=== PATIENT | female | born 1950 | race Caucasian/White ===

== ENCOUNTER 2018-01-12 08:34 | Outpatient (CLI) | payer MEDICARE, BC, OTHER | END 2018-01-12 08:35 | disposition home or self-care (01) | LOC: BICMRI 08:34 | PROVIDERS: ATTEND Nurse Practitioner Family | DX: M47.26 Other spondylosis with radiculopathy, lumbar region (principal) | CPT/HCPCS: 72020; 72148 ==

== ENCOUNTER 2018-07-25 11:58 | Outpatient (CLI) | payer MEDICARE, BC, OTHER | END 2018-07-25 11:59 | disposition home or self-care (01) | LOC: BICMAMMO 11:58 | PROVIDERS: ATTEND Internal Medicine | DX: Z12.31 Encounter for screening mammogram for malignant neoplasm of breast (principal); N64.89 Other specified disorders of breast | CPT/HCPCS: 77063; 77067 ==

== ENCOUNTER 2018-07-26 14:30 | Outpatient (CLI) | payer MEDICARE, BC, OTHER ==
--- NOTE | 2018-07-26 15:19 | RAD ---
TWO VIEWS RIGHT HIP: History: Pain. Comparison: None. FINDINGS: Contour of the femoral head is maintained. No fracture or malalignment. Joint space is preserved. The visualized bony pelvis is intact. IMPRESSION: Unremarkable left hip two views. POS: [facility]
--- NOTE | 2018-07-26 15:20 | RAD ---
TWO VIEWS RIGHT HIP: History: Pain. Comparison: None. FINDINGS: Mild loss of the medial and inferior joint space height. Contour of the femoral head is maintained. N o fracture. Visualized bony pelvis is intact. IMPRESSION: Mild degenerative change. POS: [facility]
--- NOTE | 2018-07-26 15:42 | RAD ---
THREE VIEWS LUMBAR SPINE: HISTORY: Bulging disk pain. FINDINGS: Lateral neutral, lateral flexion, and lateral extension views are submitted for interpretation. There are 5 lumbar-type vertebral bodies. In the neutral position, 2.3 mm of retrolisthesis of L2 up on L3. Upon extension, 3.1 mm of retrolisthesis of L2 upon L3. Upon flexion, retrolisthesis resolve s. In the neutral position, 1.9 mm of retrolisthesis of L3 upon L4. Upon extension, there is 2 mm of re trolisthesis of L3 upon L4. Upon flexion, retrolisthesis resolves. IMPRESSION: Spondylolisthesis as above. POS: [facility]
== END 2018-07-26 14:31 | disposition home or self-care (01) ==
LOC: TBSIIMAG 14:30
PROVIDERS: ATTEND Neurological Surgery
DX: M25.551 Pain in right hip (principal); M25.552 Pain in left hip; M54.5 Low back pain; M43.16 Spondylolisthesis, lumbar region; M16.11 Unilateral primary osteoarthritis, right hip
CPT/HCPCS: 72100

== ENCOUNTER 2018-07-31 12:57 | Outpatient (CLI) | payer MEDICARE, BC, OTHER | END 2018-07-31 12:58 | disposition home or self-care (01) | LOC: BICMAMMO 12:57 | PROVIDERS: ATTEND Internal Medicine | DX: R92.2 Inconclusive mammogram (principal) | CPT/HCPCS: 77065; G0279 ==

== ENCOUNTER 2019-11-06 11:09 | Outpatient (CLI) | payer MEDICARE, BC, OTHER ==
--- NOTE | 2019-11-06 11:45 | RAD ---
MRI SAFETY 2 VIEWS LUMBAR SPINE: DATE: 11/06/2019. PROVIDED CLINICAL HISTORY: MRI clearance. FINDINGS: Comparison 07/26/2018. Examination was performed to exclude the presence of metallic foreign body in the region of the spinal canal. There is no evidence for such. IMPRESSION: As above. POS: [facility]
--- NOTE | 2019-11-06 12:48 | MRI ---
EXAM: MRI cervical spine without contrast HISTORY: Neck pain and headaches for several months COMPARISON: None TECHNIQUE: Multiplanar multisequence MR images were obtained of the cervical spine without contrast. FINDINGS: The vertebral bodies and intervertebral discs demonstrate normal height and alignment without fractur e or subluxation. Generalized disc desiccation is seen. The visualized cord demonstrates normal signal throughout. The craniocervical junction is unremarkab le. The prevertebral soft tissues are unremarkable. No paraspinal soft tissue abnormality is seen. C2/3: No significant posterior bulge or protrusion. No posterior facet arthrosis. No central canal stenosis. No neural foraminal stenosis. C3/4: Small generalized concentric disc bulge No posterior facet arthrosis. Mild central canal sten osis. Mild bilateral neural foraminal stenosis. C4/5: No significant posterior bulge or protrusion. No posterior facet arthrosis. No central canal stenosis. No neural foraminal stenosis. C5/6: Very small generalized concentric disc bulge No posterior facet arthrosis. Mild central canal stenosis. Mild bilateral neural foraminal stenosis. C6/7: A small generalized concentric disc bulge. No posterior facet arthrosis. No central canal richrad nosis. Mild bilateral neural foraminal stenosis. C7/T1: No significant posterior bulge or protrusion. No posterior facet arthrosis. No central canal stenosis. No neural foraminal stenosis. IMPRESSION: Mild degenerative changes of the cervical spine as above
--- NOTE | 2019-11-06 14:42 | RAD ---
EIGHT VIEWS OF THE CERVICAL SPINE: INDICATION: History of cervical radiculopathy. FINDINGS: There is mild posterior translation of C3 on C4 that demonstrates no abnormal translational motion on the flexion and extension lateral radiographs. There is mild multilevel disc degenerative facet osteoarthritic change. No osseous neural foraminal narrowing is evident. Lung apices are clear. Later al masses are symmetric. IMPRESSION: Mild to moderate spondylosis of the cervical spine with mild retrolisthesis of C3 on C4 without appre ciable translational motion. Transcribed Date/Time: 11/06/2019 2:59 PM
== END 2019-11-06 11:10 | disposition home or self-care (01) ==
LOC: BICMRI 11:09
PROVIDERS: ATTEND Anesthesiology Pain Medicine
DX: M47.22 Other spondylosis with radiculopathy, cervical region (principal); M43.12 Spondylolisthesis, cervical region; Z98.890 Other specified postprocedural states
CPT/HCPCS: 72052; 72100; 72141

== ENCOUNTER 2019-11-07 09:54 | Outpatient (CLI) | payer MEDICARE, BC, OTHER ==
--- NOTE | 2019-11-07 14:28 | CT ---
CT neck with and without contrast: (Parathyroid protocol). DATE: 11/07/2019 HISTORY: 69-year-old female with hyperparathyroidism. TECHNIQUE: Precontrast scan, 25 second postcontrast scan, and 65 second postcontrast scan, performed from romana to upper edge of maxillary sinuses. Coronal and sagittal reconstructions. FINDINGS: There is no enhancing nodule that is particularly suspicious for parathyroid adenoma. Thyroid gland i s small and contains multiple tiny nodules several millimeters in size each. Small, scattered, subcentimeter enhancing nodular densities are present scattered in the mediastinum, consistent with l ymph nodes. Trachea, larynx, submandibular, are normal. Submandibular, parotid, carotid, retropharyngeal, perivertebral, posterior cervical, parapharyngeal, and supervisor conditioning yard, spaces, are rik l. IMPRESSION: No parathyroid adenoma identified.
[2019-11-07] MEDS ORDERED: Iopamidol-370 76% 500 ML 1 ML ONE (14:36)
== END 2019-11-07 09:55 | disposition home or self-care (01) ==
LOC: BICCT 09:54
PROVIDERS: ATTEND Specialist
DX: E21.3 Hyperparathyroidism, unspecified (principal)
CPT/HCPCS: 70492; 82565; Q9967

== ENCOUNTER 2019-12-02 14:43 | Outpatient (CLI) | payer MEDICARE, BC, OTHER ==
--- NOTE | 2019-12-02 15:48 | MMO ---
Bilateral MAMMO Bilat Screen [facility]. CLINICAL HISTORY: Patient is 69 years old and is seen for screening. The patient has no family history of breast cancer. The patient has no personal history of cancer. VIEWS: The views performed were: bilateral craniocaudal with tomosynthesis; bilateral mediolateral oblique with tomosynthesis; and left mediolateral oblique. FILMS COMPARED: The present examination has been compared to prior imaging studies performed at [facility] on 09/25/2012, 11/06/2015, 07/25/2018 and 07/31/2018. This study has been interpreted with the assistance of computer-aided detection. MAMMOGRAM FINDINGS: There are scattered fibroglandular densities. There are no suspicious masses, suspicious calcifications, or new areas of architectural distortion. IMPRESSION: THERE IS NO MAMMOGRAPHIC EVIDENCE OF MALIGNANCY. A ROUTINE FOLLOW-UP MAMMOGRAM IN 1 YEAR IS RECOMMENDED. THE RESULTS OF THIS EXAM WERE SENT TO THE PATIENT. ACR BI-RADS Category 1 - Negative MAMMOGRAPHY NOTE: 1. A negative mammogram report should not delay a biopsy if a dominant of clinically suspicious mass is present. 2. Approximately 10% to 15% of breast cancers are not detected by mammography. 3. Adenosis and dense breasts may obscure an underlying neoplasm. Reported by: John KIM Electonically Signed: [id number]
--- NOTE | 2019-12-02 15:50 | BD ---
EXAM: DEXA bone density examination HISTORY: History of arthritis; history of M15.3 and M15.8 COMPARISON: None FINDINGS: L1--bone mineral density 0.835 g/sq cm; T score -1.4. Z score 0.5 L2--bone mineral density 0.922 g/sq cm; T score -1.0; Z score 1.2 L3--bone mineral density 1.002 g/sq cm; T score -0.7; Z score 1.5 L4--bone mineral density 0.996 g/sq cm; T score -0.6, Z score 1.7 Total L1-L4--bone mineral density 0.945 g/sq cm; T score -0.9, Z score 1.2 Left femoral neck--bone mineral density0.519; T score -3.0, Z score -1.1 Total proximal left femur--bone mineral density 0.713; T score -1.9, Z score -0.3 IMPRESSION: Based on the WHO criteria, the patient's bone mineral density is consideredosteoporotic. The patient is at high risk for fracture
== END 2019-12-02 14:44 | disposition home or self-care (01) ==
LOC: BICMAMMO 14:43
PROVIDERS: ATTEND Internal Medicine
DX: Z12.31 Encounter for screening mammogram for malignant neoplasm of breast (principal); Z13.820 Encounter for screening for osteoporosis; M15.3 Secondary multiple arthritis; M15.8 Other polyosteoarthritis; M81.0 Age-related osteoporosis without current pathological fracture
CPT/HCPCS: 77063; 77067; 77080

== ENCOUNTER 2020-01-01 09:46 | Outpatient (CLI) | payer MEDICARE, BC, OTHER ==
--- NOTE | 2020-01-01 12:49 | MRI ---
MRI LUMBAR SPINE WITHOUT CONTRAST: HISTORY: M54.16, radiculopathy. COMPARISON: Lumbar spine radiograph 11/06/2019. Also, MRI of the lumbar spine 01/12/2018. FINDINGS: The aortic contour is nonaneurysmal. Mild fullness in the right and left renal pelves without hydron ephrosis. Paraspinal musculature is symmetric. No marrow infiltrative process. The conus medullaris terminates near the superior end plate of L2. The levels are as follows: L1-2: Relatively normal disk. No neural foraminal or spinal canal narrowing. L2-3: Circumferential disk bulge, mild. Mild hypertrophic facet arthrosis. Minimal effacement of t he ventral CSF space. No significant neural foraminal narrowing. L3-4: Minimal disk space height loss. Small subforaminal disk-osteophyte complexes, greater in the right lateral recess and subforaminal zone. Mild hypertrophic facet arthrosis with small effusions. Mild bilateral neural foraminal narrowing with abutment of both traversing L4 nerve roots. No signi ficant spinal canal narrowing. L4-5: Mild disk desiccation. Large disk bulge with superimposed herniation in the left lateral rece ss and subforaminal zone. There is abutment of both traversing nerve roots. There is also abutment of left exiting nerve root. Moderate to severe left and moderate right neural foraminal narrowing. Moderate hypertrophic facet arthrosis with joint effusions. 1 mm retrolisthesis. No significant spi nal canal narrowing. L5-S1: Mild degenerative disk space height loss and disk desiccation. There is a left lateral reces s disk herniation superimposed upon a circumferential disk bulge. Disk herniation abuts the left S1 nerve root. Moderate left and mild right neural foraminal narrowing. Moderate to severe facet arthr osis with posterior bilateral synovial cyst. IMPRESSION: Mildly progressive spondylosis from 2018 with multilevel neural foraminal narrowing and nerve root ab utment. POS: HOME
== END 2020-01-01 09:47 | disposition home or self-care (01) ==
LOC: BICMRI 09:46
PROVIDERS: ATTEND Internal Medicine
DX: M47.26 Other spondylosis with radiculopathy, lumbar region (principal); M54.18 Radiculopathy, sacral and sacrococcygeal region; M48.061 Spinal stenosis, lumbar region without neurogenic claudication; M48.07 Spinal stenosis, lumbosacral region
CPT/HCPCS: 72148

== ENCOUNTER 2020-09-17 09:48 | Outpatient (CLI) | payer MEDICARE, BC, OTHER ==
[2020-09-17 22:40] LABS: SARS-CoV-2 MS2 Positive; SARS-CoV-2 N Gene Negative; SARS-CoV-2 S Gene Negative; SARS-CoV-2 by NAA Not Detected (NotDetected); SARS-CoV-2 orf1ab Negative
== END 2020-09-17 09:49 | disposition home or self-care (01) ==
LOC: LABBT 09:48
PROVIDERS: ATTEND Specialist
DX: Z01.812 Encounter for preprocedural laboratory examination (principal); Z20.828 Contact with and (suspected) exposure to other viral communicable diseases
CPT/HCPCS: 87635; U0003

== ENCOUNTER 2020-09-21 07:53 | Outpatient (CLI) | payer MEDICARE, BC, OTHER ==
--- NOTE | 2020-09-21 09:27 | RAD ---
XR UGI Air Contrast History: Hernia Comparison: None. Findings: Patient was brought to the fluoroscopy suite. All questions were answered. Patient was initially given gas-forming crystals. Next patient was given thick liquid barium. The gibson bear and secondary peristalsis was relatively weak. Majority of the contrast drained via gravity. No extrinsic mass effect or diverticulum. No stricture. This mild reflux contrast the lower one third esophagus in the standing position with numerous tertiary contractions. Small hiatal hernia was seen in the same position. Next patient was put in the MELLO position and given thin liquid contrast to continuously drink. Poor p rimary and secondary peristalsis with numerous tertiary contractions. Small-moderate sliding hiatal hernia. Reflux of the upper one third esophagus. Normal proximal small bowel rotation. Gastric folds are normal. Impression: 1. Poor primary and secondary peristalsis with numerous tertiary contractions with majority of the es ophageal contents extending into the stomach via gravity. 2. Small-moderate sliding hiatal hernia. 3. No high-grade stricture, diverticulum, or extrinsic mass effect.
== END 2020-09-21 07:54 | disposition home or self-care (01) ==
LOC: RAD 07:53
PROVIDERS: ATTEND Specialist
DX: K21.9 Gastro-esophageal reflux disease without esophagitis (principal); K44.9 Diaphragmatic hernia without obstruction or gangrene; K22.8 Other specified diseases of esophagus
CPT/HCPCS: 74246

== ENCOUNTER 2020-12-14 12:32 | Outpatient (CLI) | payer MEDICARE, BC, OTHER ==
[2020-12-15 02:30] LABS: SARS-CoV-2 PCR by NAA Not Detected (NotDetected)
== END 2020-12-14 12:33 | disposition home or self-care (01) ==
LOC: LABBT 12:32
PROVIDERS: ATTEND Internal Medicine Gastroenterology
DX: K21.9 Gastro-esophageal reflux disease without esophagitis (principal); K44.9 Diaphragmatic hernia without obstruction or gangrene; Z20.822 Contact with and (suspected) exposure to COVID-19
CPT/HCPCS: U0003; U0005; 87635

== ENCOUNTER → 2020-12-17 | Day surgery (SDC) | payer MEDICARE, BC, OTHER | LOC: ENDO/OP 08:04 | PROVIDERS: ATTEND Internal Medicine Gastroenterology | DX: K21.9 Gastro-esophageal reflux disease without esophagitis (principal); K44.9 Diaphragmatic hernia without obstruction or gangrene; Z88.0 Allergy status to penicillin; Z88.1 Allergy status to other antibiotic agents | CPT/HCPCS: 91010; 91034 ==

== ENCOUNTER 2021-02-04 10:35 | Outpatient (CLI) | payer MEDICARE, BC, OTHER ==
[2021-02-04 12:37] LABS: #Eosinphils 0.1 10x3/uL (0.0-0.5); #Monocytes 0.8 10x3/uL (0.0-1.1); #Neutrophils 7.1 10x3/uL (1.5-8.4); %Basophils 0.2 % (0.0-2.0); %Eosinophils 0.7 % (0.0-6.0); %Lymphocytes 7.8 % (18.0-47.0); %Monocytes 8.8 % (0.0-10.0); %Neutrophils 81.9 % (40.0-75.0); Hemoglobin 15.3 g/dL (12.0-15.5); Mean Corpuscular HGB CONC 33.2 g/dL (32.0-36.0); Mean Corpuscular Hemoglobin 28.4 pg (27.0-33.0); Mean Corpuscular Volume 85.7 fl (81.6-98.3); Mean Platelet Volume 9.9 fl (7.4-10.4); Platelet Count 316 10x3/uL (150-450); RBC Distribution Width 15.1 % (11.5-14.5); Red Blood Cell (RBC) Count 5.38 10x6/uL (3.90-5.03); White Blood Cell (WBC) Count 8.7 10x3/uL (3.5-10.5)
[2021-02-04 15:25] LABS: Anion Gap 16 mmol/L (10-20); BUN (Urea Nitrogen) 21 mg/dL (9.8-20.1); Calc. Creatinine Clearance 0 mL/min (70-130); Calcium 8.5 mg/dL (7.8-10.44); Carbon Dioxide 21 mmol/L (23-31); Chloride 105 mmol/L (98-107); Glucose 108 mg/dL (83-110); Potassium 4.2 mmol/L (3.5-5.1); Sodium 138 mmol/L (136-145)
[2021-02-05 01:47] LABS: SARS-CoV-2 PCR by NAA Not Detected (NotDetected)
== END 2021-02-04 10:36 | disposition home or self-care (01) ==
LOC: LABBT 10:35
PROVIDERS: ATTEND Internal Medicine
DX: Z01.818 Encounter for other preprocedural examination (principal); K21.9 Gastro-esophageal reflux disease without esophagitis; Z20.822 Contact with and (suspected) exposure to COVID-19
CPT/HCPCS: 71046; 80048; 85025; 93005; U0003; U0005; 87635; 93010

== ENCOUNTER 2021-02-09 05:57 | Observation (INO) | payer MEDICARE, BC, OTHER ==
[2021-02-09] MEDS ORDERED: Ketorolac Tromethamine 30 MG/ML VIAL ONE (06:38)
[2021-02-09] MEDS ORDERED: Acetaminophen 500 MG TAB ONE (06:38)
[2021-02-09] MEDS ORDERED: Levofloxacin 500 mg/D5W 100 ml Premix Bag ONE (06:38)
[2021-02-09] MEDS ORDERED: Bupivacaine 0.25% HCL 30 ML VIAL ONE (06:42)
[2021-02-09] MEDS ORDERED: Lidocaine 1% w/Epinephrine 1:100K 20 ML VIAL ONE (06:42)
[2021-02-09] MEDS ORDERED: Fentanyl 100 MCG/2 ML VIAL ONE ×4 (06:56→11:42)
[2021-02-09] MEDS ORDERED: Dexamethasone 20 MG/5 ML VIAL ONE (07:36)
[2021-02-09] MEDS ORDERED: PROPOFOL 200 MG/20 ML VIAL ONE (07:36)
[2021-02-09] MEDS ORDERED: Lidocaine 1% PF 5 ML VIAL ONE (07:36)
[2021-02-09] MEDS ORDERED: Succinylcholine 200 MG/10 ml SYRINGE FS ONE (07:36)
[2021-02-09] MEDS ORDERED: Glycopyrrolate 0.2 MG/ML 5 ML SYRINGE ONE (07:36)
[2021-02-09] MEDS ORDERED: Ondansetron PF 4 MG/2 ML Vial ONE (07:36)
[2021-02-09] MEDS ORDERED: PHENYLEPHRINE-NS 100 MCG/ML 10 ML SYRINGE ONE (07:36)
[2021-02-09] MEDS ORDERED: Rocuronium Bromide 10 MG/ML (10ML VIAL) ONE (07:36)
[2021-02-09] MEDS ORDERED: Promethazine HCl 25 MG/ML VIAL ONE (11:42)
[2021-02-09] MEDS ORDERED: Ondansetron PF 4 MG/2 ML Vial IVP PRN (15:02)
[2021-02-09] MEDS ORDERED: Calcium Carbonate 500 MG ChewTAB PO PRN (15:02)
[2021-02-09] MEDS ORDERED: Acetaminophen 325 MG TAB PO PRN (15:02)
[2021-02-09] MEDS ORDERED: hydrALAZINE 20 MG/ML VIAL SLOW IVP PRN (15:02)
[2021-02-09] MEDS ORDERED: Dextrose 50% Abboject 50 ML SYRINGE SLOW IVP PRN (15:02)
[2021-02-09] MEDS ORDERED: Dextrose 5% in Water 1,000 ML IV PRN (15:02)
[2021-02-09] MEDS ORDERED: Mag-Al 1200 mg/1200 mg/30 ML UDCUP PO PRN (15:02)
[2021-02-09] MEDS ORDERED: Promethazine HCl 25 MG/ML VIAL IM PRN (15:02)
[2021-02-09] MEDS ORDERED: Morphine 4 MG/ML VIAL SLOW IVP PRN ×2 (15:02→15:22)
[2021-02-09 15:05] VITALS: BMI 26.2
[2021-02-09] MEDS: D5 1/2 NS w/20 mEq KCL 1,000 ML IV SCH (15:52)
[2021-02-09] MEDS: Ketorolac Tromethamine 30 MG/ML VIAL IVP SCH ×2 (17:06→23:49)
[2021-02-09] MEDS: Famotidine 20 MG TAB PO SCH (21:38)
[2021-02-09] MEDS: HYDROcodone/Acetaminophen 10/325 mg Tablet PO PRN (21:47)
[2021-02-09] MEDS: Famotidine/PF 20 mg/2ml Vial SLOW IVP SCH (21:50)
[2021-02-10] MEDS: HYDROcodone/Acetaminophen 10/325 mg Tablet PO PRN (04:13)
[2021-02-10] MEDS: D5 1/2 NS w/20 mEq KCL 1,000 ML IV SCH (04:15)
[2021-02-10] MEDS: Ketorolac Tromethamine 30 MG/ML VIAL IVP SCH ×2 (06:15→12:04)
[2021-02-10 06:22] LABS: #Eosinphils 0.1 thou/uL (0.0-0.7); #Lymphocytes 1.9 thou/uL (1.20-3.40); #Monocytes 1.4 thou/uL (0.11-0.59); #Neutrophils 10.4 thou/uL (1.40-6.50); %Basophils 0.1 % (0.0-1.0); %Eosinophils 0.4 % (0.0-10.0); %Lymphocytes 13.8 % (21.0-51.0); %Monocytes 10.4 % (0.0-10.0); %Neutrophils 75.3 % (42.0-75.0); Hemoglobin 12.9 g/dL (12.0-16.0); Mean Corpuscular HGB CONC 31.3 g/dL (32.0-36.0); Mean Corpuscular Hemoglobin 28.3 pg (27.0-31.0); Mean Corpuscular Volume 90.3 fL (78.0-98.0); Mean Platelet Volume 7.6 fL (7.4-10.4); Platelet Count 270 thou/uL (130-400); RBC Distribution Width 13.7 % (11.5-14.5); Red Blood Cell (RBC) Count 4.55 mill/uL (4.20-5.40); White Blood Cell (WBC) Count 13.8 thou/uL (4.8-10.8)
[2021-02-10 06:43] LABS: Anion Gap 10 mmol/L (10-20); BUN (Urea Nitrogen) 11 mg/dL (9.8-20.1); Calc. Creatinine Clearance 54 mL/min (70-130); Calcium 8.2 mg/dL (7.8-10.44); Carbon Dioxide 22 mmol/L (23-31); Chloride 112 mmol/L (98-107); Glucose 108 mg/dL (83-110); Potassium 4.8 mmol/L (3.5-5.1); Sodium 139 mmol/L (136-145)
[2021-02-10] MEDS: Famotidine 20 MG TAB PO SCH (08:04)
[2021-02-10] MEDS: Famotidine/PF 20 mg/2ml Vial SLOW IVP SCH (08:05)
[2021-02-10 12:01] VITALS: BP 126/73; TEMP 98.5
== END 2021-02-10 12:38 | disposition home or self-care (01) ==
LOC: SDC 05:57 → T4-A 09:42
PROVIDERS: ADMIT Specialist; ATTEND Specialist
PROC: 0DV44ZZ Restriction of Esophagogastric Junction, Percutaneous Endoscopic Approach (ICD-10-PCS; principal; 2021-02-09)
DX: K44.9 Diaphragmatic hernia without obstruction or gangrene (principal); K21.9 Gastro-esophageal reflux disease without esophagitis; I11.9 Hypertensive heart disease without heart failure; E78.00 Pure hypercholesterolemia, unspecified; M81.0 Age-related osteoporosis without current pathological fracture; E03.9 Hypothyroidism, unspecified; Z79.82 Long term (current) use of aspirin; Z79.899 Other long term (current) drug therapy; Z88.0 Allergy status to penicillin; Z88.1 Allergy status to other antibiotic agents; Z88.2 Allergy status to sulfonamides
CPT/HCPCS: 43280; 80048; 85025; 96374; 96376 ×2; 97139; G0378 ×2; 36415; J1100; J1885; J1956; J2405; J2550; J2704; J3010; J3480; S0020

== ENCOUNTER 2021-12-24 07:59 | Outpatient (CLI) | payer MEDICARE, BC, OTHER | END 2021-12-24 08:00 | disposition home or self-care (01) | LOC: BICMAMMO 07:59 | PROVIDERS: ATTEND Internal Medicine Endocrinology, Diabetes & Metabolism | DX: M81.8 Other osteoporosis without current pathological fracture (principal) | CPT/HCPCS: 77080 ==

== ENCOUNTER 2022-04-06 08:28 | Outpatient (CLI) | payer MEDICARE, BC, OTHER | END 2022-04-06 08:29 | disposition home or self-care (01) | LOC: BICMRI 08:28 | PROVIDERS: ATTEND Anesthesiology Pain Medicine | DX: M47.26 Other spondylosis with radiculopathy, lumbar region (principal); M43.16 Spondylolisthesis, lumbar region; M25.78 Osteophyte, vertebrae | CPT/HCPCS: 72110; 72148 ==

== ENCOUNTER 2023-09-24 08:15 | Emergency (ER) | payer MEDICARE, BC ==
[2023-09-24] MEDS ORDERED: Dexamethasone 10 MG/ML VIAL ONE (08:40)
[2023-09-24] MEDS ORDERED: Ketorolac Tromethamine 30 MG/ML VIAL ONE (08:40)
[2023-09-24 08:42] LABS: #Monocytes 0.9 thou/uL (0.11-0.59); #Neutrophils 4.4 thou/uL (1.40-6.50); %Basophils 0.3 % (0.0-1.0); %Monocytes 12.6 % (0.0-10.0); %Neutrophils 64.8 % (42.0-75.0); Hematocrit 51.1 % (36.0-47.0); Hemoglobin 16.8 g/dL (12.0-16.0); Mean Corpuscular HGB CONC 32.9 g/dL (32.0-36.0); Mean Corpuscular Hemoglobin 29.7 pg (27.0-31.0); Mean Corpuscular Volume 90.3 fl (78.0-98.0); Mean Platelet Volume 9.7 fL (7.4-10.4); Platelet Count 261 10x3/uL (130-400); RBC Distribution Width 14.5 % (11.5-14.5); Red Blood Cell (RBC) Count 5.66 mill/uL (4.20-5.40); White Blood Cell (WBC) Count 6.7 10x3/uL (4.8-10.8)
[2023-09-24] MEDS ORDERED: Lidocaine 2% Viscous Solution 10 ML, Aluminum & Magnesium Hydroxide 30 ML SSW SCH (09:00)
[2023-09-24 09:07] LABS: ALT (SGPT) 28 U/L (8-55); AST (SGOT) 36 U/L (5-34); Albumin 4.4 g/dL (3.4-4.8); Alkaline Phosphatase 52 U/L (40-110); Anion Gap 23 mmol/L (10-20); BUN (Urea Nitrogen) 16 mg/dL (9.8-20.1); Bilirubin, Total 0.5 mg/dL (0.2-1.2); Calc. Creatinine Clearance 0 mL/min (70-130); Calcium 9.9 mg/dL (7.8-10.44); Carbon Dioxide 17 mmol/L (23-31); Chloride 104 mmol/L (98-107); Estimated GFR 52; Globulin 3.8 g/dL (2.4-3.5); Glucose 72 mg/dL (83-110); Potassium 4.1 mmol/L (3.5-5.1); Protein, Total 8.2 g/dL (5.8-8.1); Sodium 140 mmol/L (136-145)
[2023-09-24 10:13] LABS: SARS-CoV-2 NAA Rapid Test DETECTED (NotDetected)
== END 2023-09-24 10:52 | disposition home or self-care (01) ==
LOC: ERS 08:15
DX: U07.1 COVID-19 (principal); J01.90 Acute sinusitis, unspecified; E86.0 Dehydration; I10 Essential (primary) hypertension
CPT/HCPCS: 0240U; 71045; 80053; 83605; 85025; 87040; 87081; 87430; 93005; 96361; 96374; 96375; 99284; J1100; J1885

== ENCOUNTER 2024-02-28 12:59 | Outpatient (CLI) | payer MEDICARE, BC, OTHER | END 2024-02-28 13:00 | disposition home or self-care (01) | LOC: BICMRI 12:59 | PROVIDERS: ATTEND Anesthesiology Pain Medicine | DX: M47.26 Other spondylosis with radiculopathy, lumbar region (principal); M51.16 Intervertebral disc disorders with radiculopathy, lumbar region; M47.817 Spondylosis without myelopathy or radiculopathy, lumbosacral region; M51.37 Other intervertebral disc degeneration, lumbosacral region; M48.061 Spinal stenosis, lumbar region without neurogenic claudication; M48.07 Spinal stenosis, lumbosacral region | CPT/HCPCS: 72148 ==

== ENCOUNTER 2024-03-21 08:14 | Outpatient (CLI) | payer MEDICARE, BC | END 2024-03-21 08:15 | disposition home or self-care (01) | LOC: BICMAMMO 08:14 | PROVIDERS: ATTEND Internal Medicine Endocrinology, Diabetes & Metabolism | DX: M81.8 Other osteoporosis without current pathological fracture (principal); M85.89 Other specified disorders of bone density and structure, multiple sites | CPT/HCPCS: 77080 ==